=== PATIENT | male | born 1960 | race Caucasian/White ===

== ENCOUNTER 2018-02-15 05:33 | Emergency (ER) | payer OTHER, SELFPAY ==
[2018-02-15 05:35] VITALS: BP 143/92; PULSE 75; RESP 20; TEMP 36.6; O2SAT 100; BMI 31.7
--- NOTE | 2018-02-15 05:43 | ED.DCSUM_ITS ---
- ER Visit Summary Date of Service: 02/15/18 Chief Complaint: Abdominal pain, nausea History of Present Illness: The patient is a 58 M presents to the emergency department with 3 days of intermittent midepigastric abdominal pain and nausea. Patient states his symptoms started gradually. He describes a dull ache in his midepigastric area that radiates to his right upper quadrant. He states it is worse when he tries to eat. He has had some constipation. He denies any fevers or chills. He has had some dry heaves, but describes nonbloody, nonbilious vomiting. He has no history of Crohn's disease or ulcerative colitis. He denies any recent travel. He said no surgery on his abdomen in the past. He states his never really had symptoms like this before. He has had no chest pain or exertional dyspnea. He has no history of diabetes. Physical Examination: Vital signs reviewed General: Well-nourished, well-developed Head: Normocephalic, atraumatic Eyes: Pupils equal and reactive, extraocular muscles intact Neck, supple, no lymphadenopathy Heart: Regular rate and rhythm Respiratory: No distress, clear bilaterally Abdomen: Soft, tender in the right upper quadrant but no definitive Marlow sign , nondistended, no peritoneal signs Back: Nontender Extremities: Nontender, no edema, no cords Skin: Normal color no rash Neuro: Alert and oriented, no focal or lateralizing deficits Test Results: [] Emergency Department Course and Treatment: The patient presents with midepigastric pain and was right upper quadrant. He is also had nausea and the pain is worse when he eats. His symptoms are consistent with biliary colic versus gastritis versus ulcer. Patient was treated with IV analgesics and antiemetics with improvement of symptoms. His labs are unremarkable. There is no evidence of biliary obstruction on screening labs. With the patient's symptoms, he will undergo CT of the abdomen and pelvis with IV contrast. This will be followed up by oncoming physician. Obviously if there are any acute abnormalities, this will be dealt with. I do feel comfortable that if this shows no acute process, the patient can safely be discharged with antiemetics and it has spasmodic. Disposition is pending completion of evaluation. Treatment Plan: [] Disposition: Pending Impression: 1. Nausea 2. Midepigastric abdominal pain This note was generated with [employer] software. It may contain incorrect words, spelling, and punctuation that were not noted in review of the chart prior to signing ED Disposition - Plan for ED Patient: Chief Complaint: Nausea/Vomiting Instructions: ED Nausea Vomiting Prescriptions: Ondansetron [Zofran Odt] 4 mg PO Q8H PRN PRN #20 tab PRN Reason: Nausea Referrals: Derek Manning MD [Primary Care Provider] -
[2018-02-15] MEDS: Morphine 4 MG/ML Syringe IV (05:53)
[2018-02-15] MEDS: 0.9% Normal Saline 1,000 ML 1000 ML IV (05:53)
[2018-02-15] MEDS: Ondansetron 4 MG/2 ML Vial IV ×2 (05:56→08:34)
[2018-02-15 06:08] LABS: Absolute Lymphocyte Count 1.64 X10^3/ul (0.83-4.51); Absolute Neutrophil Count 6.8 X10^3/uL (2.0-7.7); Basophil# 0.02 X10^3/uL; Basophil% 0.2 % (0-1); Eosinophil# 0.14 X10^3/uL; Eosinophils% 1.5 % (0-5); Hematocrit 45.7 % (40-54); Hemoglobin 15.7 g/dl (13.0-16.5); Lymphocyte # 1.64 X10^3/ul (4.0); Lymphocyte % 17.9 % (19-41); Mean Corp Hgb Conc 34.4 g/gl (32-36); Mean Corpuscular Hgb 31.3 pg (27.0-32.0); Mean Corpuscular Volume 91.2 fL (80-94); Mean Platelet Vol. 10.3 fl (6.2-12.0); Monocyte# 0.53 X10^3/uL; Monocyte% 5.8 % (0-10); Neutrophil # 6.81 X10^3/uL (2.7-7.7); Neutrophil % 74.4 % (47-70); Platelet Count 280 K/mm3 (150-450); RBC Distribution Width CV 13.2 % (11.6-14.6); RBC Distribution Width SD 43.6 fl (35.1-43.9); Red Blood Count 5.01 M/mm3 (4.6-6.2); White Blood Count 9.2 K/mm3 (4.4-11.0)
[2018-02-15 06:10] LABS: AST(SGOT) 20 U/L (15-37); Alanine Aminotransfer ALT/SGPT 31 U/L (16-61); Albumin, Serum 3.9 g/dL (3.2-5.0); Alkaline Phosphatase 81 U/L (45-117); Anion Gap 7 (5-15); BUN 14 mg/dL (7-18); BUN/Creat Ratio 19.6 RATIO (10-20); Bilirubin, Direct 0.13 mg/dL (0.00-0.30); Calcium,Total 8.9 mg/dL (8.5-10.1); Chloride 104 mmol/L (98-107); Creatinine, Serum 0.71 mg/dL (0.70-1.30); EST Glomerular Filtration Rate 121 mL/min (>60); Est Glom Filt Rate - Afr Amer 146 mL/min (>60); Estimated Creatinine Clearance 118.53 ml/min; Globulin 3.8 g/dL (2.2-4.2); Glucose 104 mg/dL (74-106); Lipase 59 U/L (73-393); Potassium 3.6 mmol/L (3.5-5.1); Protein, Total 7.7 g/dL (6.4-8.2); Sodium Level 139 mmol/L (136-145)
--- NOTE | 2018-02-15 06:11 | CT_ITS ---
STUDY: CT ABDOMEN AND PELVIS WITH CONTRAST REASON FOR EXAM: Male, 58 years old. Nausea vomiting 3 days RADIATION DOSAGE (If Supplied By Facility): CTDIvol = ( 16.98 ) mGy, DLP = ( 1296.99 ) mGycm TECHNIQUE: Transaxial images were obtained from the dome of the diaphragm to the symphysis pubis without oral contrast. 100 ml of Isovue 300 contrast was administered. Sagittal and coronal images were reconstructed. Individualized dose optimization techniques were used for this CT. COMPARISON: July 08, 2015 CT scan abdomen and pelvis FINDINGS: The visualized lung bases are unremarkable. The visualized portions of the heart are within normal limits. There is decreased attenuation of the liver consistent with steatosis. Normal gallbladder and extrahepatic biliary system. Normal spleen. Normal pancreas. There is a well-circumscribed nodule in the left adrenal gland medial side measuring 1.1 cm stable in size when compared to prior study but enhancing. There is a 1.1 x 1.1 cm low-attenuation within the right kidney stable since prior study compatible with a simple cyst. Is focal cortical thinning in the lower pole of the left kidney and to some degree within the upper pole suggesting possible prior old infarct or injury. There is a small hiatal hernia. There is a mildly thick-walled appearance of the duodenum on image #56 coronal view. There is moderate stool in the colon from the cecum to the rectum. There are diverticula present without evidence of diverticulitis. The appendix is visualized and appears normal. Aorta is partially calcified. Normal inferior vena cava. Normal retroperitoneum. Normal urinary bladder. Normal visualized prostate gland. There is a small umbilical hernia containing fat. There is multilevel degenerative change. There is multilevel spondylosis. There is a 50% chronic loss of height at T9. There is, in space narrowing at T8-T9 and T9-T10. At the level of L3-L4 there is a broad disc bulge mild neural foraminal narrowing narrowing of the bony canal. At L4-L5 there is a central disc osteophyte. There is moderate neural foraminal narrowing and mild central stenosis. The level of L5-S1 there is a broad disc bulge facet arthropathy mild foraminal narrowing. There is degenerative change of the SI joints. There are phleboliths in the pelvis. CT/Abdomen/Pelvis W IV Cont ONLY IMPRESSION: Hiatal hernia decompressed stomach. Mild thick-walled appearance of the duodenum. Consider mild duodenitis, possible enteritis. No evidence of obstruction. No evidence of appendicitis. Stable, small size enhancing left adrenal mass measuring 1.1 x 1.1 cm also described on 2 noncontrast prior studies back to a report January 13, 2012. Enhancement of a adrenal adenoma is somewhat atypical however given the stability is thought to represent a benign mass. Moderate constipation diverticulosis no evidence of diverticulitis. Stable right renal cyst Stable cortical loss left kidney consider old infection or infarction. Degenerative change thoracolumbar spine. Electronically Signed: Nicole Monahan MD at 8:31 EDT Tel , Service support ,
[2018-02-15 06:28] LABS: POSITIVE COUNT NO; POSITIVE DIFFERENTIAL NO; POSITIVE MORPHOLOGY NO
[2018-02-15] MEDS: MethylPREDNISolone 125 MG/2 ML Vial IV (06:47)
[2018-02-15] MEDS: DiphenhydrAMINE 50 MG/ML Syringe IV (06:47)
[2018-02-15 08:19] VITALS: BP 127/85; PULSE 56; RESP 16; O2SAT 99
--- NOTE | 2018-02-15 08:19 | ED.RN ---
called pharmacy for gloria
[2018-02-15 09:00] VITALS: BP 141/93; PULSE 63; RESP 15; O2SAT 95
== END 2018-02-15 09:01 | disposition home or self-care (01) ==
LOC: ED 05:53
PROVIDERS: Emergency Provider Emergency Medicine; Family Provider Internal Medicine; PCP Internal Medicine
DX: R10.13 Epigastric pain (principal); I10 Essential (primary) hypertension; R11.2 Nausea with vomiting, unspecified
CPT/HCPCS: 74177; 80048; 80076; 83690; 85025; 96361; 96365; 96375; 96376; 99283; J7030; Q9967; A4216; J3490

== ENCOUNTER 2018-02-18 14:49 | Observation (INO) | payer OTHER, SELFPAY ==
[2018-02-18 14:52] VITALS: BP 120/86; PULSE 92; RESP 24; TEMP 36.8; O2SAT 100; BMI 33.8
--- NOTE | 2018-02-18 15:15 | CT_ITS ---
STUDY: CT ABDOMEN AND PELVIS WITH CONTRAST REASON FOR EXAM: Male, 58 years old. Nausea/vomiting/constipation. RADIATION DOSAGE (If Supplied By Facility): CTDIvol = ( 18.15 ) mGy, DLP = ( 1280.23 ) mGycm TECHNIQUE: Transaxial images were obtained from the dome of the diaphragm to the symphysis pubis without oral contrast. 100CC ml of Isovue 300 contrast was administered. Sagittal and coronal images were reconstructed. Individualized dose optimization techniques were used for this CT. COMPARISON: CT abdomen and pelvis February 15, 2018. FINDINGS: Minor subsegmental atelectasis again seen in the anteromedial right middle lobe. The visualized portions of the heart are within normal limits. Normal liver. The patent portal vein diameter is 15 mm. Normal gallbladder and extrahepatic biliary system. The common bile duct diameter is 5 mm. Normal spleen. Normal pancreas. There is a 1.8 x 1.4 x 1.65 cm circumscribed, smooth, left adrenal soft tissue mass, consistent with an adrenal adenoma. Normal right adrenal gland. Stable 1.4 cm rounded low-density consistent with a cortical cyst at the lateral midpole of the right kidney. On the left, there is rounded, smoothly defined 1.9 cm scalloped appearance of the posterior lower pole cortex that may be scarring secondary to old infarct or a fatty leg and cortical lesion, such as angiomyolipoma. Cortical scarring/thinning in the medial upper pole is unchanged. Vaguely defined 1.35 x 0.8 x 1.15 cm cortical low density in the medial lower pole of left kidney is difficult to characterize. No hydronephrosis. There is a borderline hiatal hernia. Normal small intestine. There are multiple sigmoid colonic diverticula consistent with diverticulosis. The appendix is visualized and appears normal. There is mild atherosclerotic calcification of the abdominal aorta and proximal iliac arteries, without a demonstrated aneurysm. Normal inferior vena cava. Normal retroperitoneum. Normal urinary bladder. The prostate gland is approximately 3.9 x 3.75 x 3.2 cm. There is a stable umbilical hernia containing fat. There are stable degenerative changes of the visualized spine, including prominent posterior midline inferior L4 endplate osteophyte. Stable compression fracture deformity of the T9 vertebra and exuberant bilateral T8-9 endplate osteophytes. There are early osteoarthritic degenerative changes of the left hip. CT/Abdomen/Pelvis WITH Contrast IMPRESSION: 1. Sigmoid diverticulosis without acute diverticulitis. Borderline hiatal hernia. No sign of bowel obstruction. The appendix is normal. 2. Stable cortical scarring/thinning in the upper and lower poles of the left kidney. A 1.35 cm cortical lesion in the medial lower pole left kidney is difficult to characterize. 1.4 cm mid pole right renal cortical cyst is unchanged. No hydronephrosis. 3. Stable 1.8 cm left adrenal mass consistent with adenoma. 4. Stable, fat-containing umbilical hernia. 5. Stable degenerative changes of the spine, as well as stable compression fracture deformity of T9. Electronically Signed: Danielito Rivera MD at 18:15 EDT , Service support ,
--- NOTE | 2018-02-18 15:21 | ED.DCSUM_ITS ---
- ER Visit Summary Date of Service: 02/18/18 Chief Complaint: Nausea, vomiting, constipation History of Present Illness: The patient is a 58 M who is had nausea and vomiting for the past 6 days. He is complaining of upper abdominal pain. He does report being constipated but did have a small bowel movement with an enema over the weekend. He is still passing gas. Patient was seen in the ER on the sixth had a CT with IV contrast that showed thick-walled duodenum without obstruction. Patient still has nausea with dry heaves in spite of Zofran. He was seen at his PCPs office yesterday given Carafate but is not able to keep it down. He has not had fever. He denies any prior abdominal surgeries. Physical Examination: Vital signs are unremarkable. Patient is lying in bed with dry heaves. Heart is regular rate and rhythm. Lung sounds are clear. Abdomen is soft with upper abdominal tenderness. There is no guarding or rebound. He has hypoactive but present bowel sounds throughout. Test Results: CBC was a white count 11.9 with 84% neutrophils. Hemoglobin is concentrated at 17.5. Chemistry studies are significant for BUN of 20. LFTs and lipase are normal. CT abdomen pelvis with p.o. and IV contrast is obtained. This reveals evidence of sigmoid diverticulosis. There is no bowel obstruction. The previous duodenal edema is not noted. Emergency Department Course and Treatment: Was given Phenergan, Bentyl, IV fluids, and a dose of fentanyl for vomiting and pain. He was premedicated for his CT with Pepcid, Solu-Medrol, and Benadryl. Patient has required an additional dose of Zofran. While he was able to keep some down p.o., he is not well-hydrated and he does not feel that he is going to be able tolerate p.o. well enough at home. He will be admitted overnight for observation and hydration. Treatment Plan: [] Disposition: Admit Impression: 1. Gastritis 2. Vomiting This note was generated with [employer] dictation software. It may contain incorrect words, spelling, and punctuation that were not noted in review of the chart prior to signing ED Disposition - Plan for ED Patient: Chief Complaint: Nausea/Vomiting Referrals: Derek Manning MD [Primary Care Provider] -
[2018-02-18 15:33] LABS: Absolute Lymphocyte Count 1.32 X10^3/ul (0.83-4.51); Basophil# 0.01 X10^3/uL; Basophil% 0.1 % (0-1); Eosinophil# 0.01 X10^3/uL; Eosinophils% 0.1 % (0-5); Hematocrit 49.7 % (40-54); Hemoglobin 17.5 g/dl (13.0-16.5); Lymphocyte # 1.32 X10^3/ul (4.0); Lymphocyte % 11.1 % (19-41); Mean Corp Hgb Conc 35.2 g/gl (32-36); Mean Corpuscular Hgb 31.8 pg (27.0-32.0); Mean Corpuscular Volume 90.4 fL (80-94); Mean Platelet Vol. 10.5 fl (6.2-12.0); Monocyte# 0.53 X10^3/uL; Monocyte% 4.5 % (0-10); Neutrophil # 9.96 X10^3/uL (2.7-7.7); Neutrophil % 83.9 % (47-70); Platelet Count 338 K/mm3 (150-450); RBC Distribution Width CV 12.9 % (11.6-14.6); RBC Distribution Width SD 42.4 fl (35.1-43.9); White Blood Count 11.9 K/mm3 (4.4-11.0)
[2018-02-18] MEDS: Dicyclomine 20 MG/2 ML Vial IM (15:34)
[2018-02-18] MEDS: MethylPREDNISolone 125 MG/2 ML Vial IV (15:34)
[2018-02-18] MEDS: proMETHazine 25 MG/ML Syringe 12.5 MG IV ×2 (15:34→22:04)
[2018-02-18] MEDS: DiphenhydrAMINE 50 MG/ML Syringe IV (15:34)
[2018-02-18] MEDS: 0.9% Normal Saline 1,000 ML 1000 ML IV (15:35)
[2018-02-18 15:37] LABS: POSITIVE COUNT NO; POSITIVE DIFFERENTIAL NO; POSITIVE MORPHOLOGY NO
[2018-02-18 15:39] LABS: AST(SGOT) 16 U/L (15-37); Alanine Aminotransfer ALT/SGPT 25 U/L (16-61); Alkaline Phosphatase 76 U/L (45-117); Anion Gap 8 (5-15); BUN 20 mg/dL (7-18); BUN/Creat Ratio 21.6 RATIO (10-20); Bilirubin, Direct 0.17 mg/dL (0.00-0.30); Calcium,Total 9.4 mg/dL (8.5-10.1); Chloride 101 mmol/L (98-107); Creatinine, Serum 0.92 mg/dL (0.70-1.30); EST Glomerular Filtration Rate 90 mL/min (>60); Est Glom Filt Rate - Afr Amer 108 mL/min (>60); Estimated Creatinine Clearance 91.47 ml/min; Globulin 3.9 g/dL (2.2-4.2); Glucose 99 mg/dL (74-106); Lipase 47 U/L (73-393); Potassium 3.9 mmol/L (3.5-5.1); Protein, Total 7.9 g/dL (6.4-8.2); Sodium Level 138 mmol/L (136-145)
[2018-02-18] MEDS: fentaNYL 100 MCG/2 ML Ampul 25 MCG IV (17:03)
[2018-02-18 17:05] VITALS: BP 139/70; PULSE 77; RESP 18; O2SAT 98
[2018-02-18] MEDS: 0.9% Normal Saline 1,000 ML 150 ML IV (17:07)
[2018-02-18] MEDS: Ondansetron 4 MG/2 ML Vial IV (18:53)
[2018-02-18 20:16] VITALS: BMI 33.9
--- NOTE | 2018-02-18 20:17 | PCM.HP.STD ---
Problem List (1) Anxiety and depression Status: Acute (2) HTN (hypertension) Status: Chronic (3) GERD (gastroesophageal reflux disease) Status: Acute (4) Obesity Status: Acute (5) Gastroenteritis Status: Acute History of Present Illness Date of Admission: 02/18/18 Chief Complaint: Abdominal pain, N/V The patient is a 58 y/o M w/ PMHx: HTN, Former Tobacco use, GERD, Anxiety and Depression, Obesity who was recently evaluated in the ED over the weekend with ongoing abdominal discomfort, dull ache noted 7-05/22 prior, now 11/22 in the ED following regimen, noted primarily upper BL quadrants with inability to eat, nausea with emesis w/ imaging at that time demonstrating duodenitis w/ discharge from ED w/ zofran who now re-presents to the [facility] ED on 02/18/18 with ongoing discomfort, nausea, emesis despite zofran and PCP added carafate without fever or chills. He notes history of diarrhea and abdominal discomfort ~ 2 weeks prior which lasted 48 hours and resolved and then prior to current onset of discomfort sensation of constipation w/ last BM the AM of ED presentation, normalizing but small. In the ED work-up included T 98.2, HR 92-->77, BP 120/86, RR 24-->18, 100% on RA, CBC w/ WBC 11.9, Hgb 17.5, Plts 338 with L shift, unremarkable CMP, CT A/P w/ sigmoid diverticulosis without acute diverticulitis, borderline hiatal hernia, no sign of bowel obstruction, normal appearing appendix, stable cortical scarring and thinning in the upper and lower poles of the left kidney, 1.3 cm cortical lesion in the medial lower pole left kidney, 1.4 similar mid pole right renal cortical cyst unchanged, no hydronephrosis, stable 1.8 similar left adrenal mass consistent with adenoma, stable fat-containing umbilical hernia, stable degenerative changes of the spine. In the ED patient administered NS, Phenergan, Zofran, Solu-Medrol, fentanyl, famotidine, Benadryl, Bentyl. Given ongoing discomfort and inability to appropriately keep hydrated patient admitted. Past Medical History Past Medical History (Chronic Problems): Chronic Problems HTN (hypertension) (Chronic) Allergies iodine Allergy (Verified 02/18/18 14:51) Hives Penicillins Allergy (Verified 02/18/18 20:16) Hives Home Medications: Ambulatory Orders Medication Instructions Recorded Lisinopril/Hydrochlorothiazide 1 tablet PO DAILY 02/15/18 [Zestoretic 10/12.5 Tablet] Ondansetron [Zofran Odt] 4 mg PO Q8H PRN PRN #20 tab 02/15/18 Oxycodone HCl/Acetaminophen 1 tablet PO DAILY PRN PRN 02/15/18 [Percocet 5/325] Amlodipine [Norvasc] 10 mg PO QHS 02/18/18 Aspirin [Aspirin EC] 325 mg PO DAILY 02/18/18 Duloxetine HCl 60 mg PO DAILY 02/18/18 Nabumetone [Relafen] 750 mg PO BID 02/18/18 Sucralfate [Carafate] 1 gm PO 4X/DAY 02/18/18 Surgical History: - - Patient with history of spinal trauma with several surgeries including significant hardware placement initially which became infected and required removal with eventual fusion, right rotator cuff repair, oral surgery. Psychiatric History: Anxiety, Depression Lives: Spouse/ Significant Other Smoking Status: Former smoker - Quit approximate 10 years prior, prior to this one pack per day tobacco usage. Tobacco Use: Non-smoker Alcohol: None Drugs: None Review of Systems Constitutional: Reports: Anorexia, Malaise, Weakness, Fatigue. Denies: Chills, Fever, Weight Change HEENT: Denies: Head Aches, Sinus Congestion, Sinus Drainage Cardiovascular: Denies: Chest Pain, Palpitations Respiratory: Denies: Cough, Shortness of breath at rest, Sputum production Gastrointestinal: Reports: Abdominal Pain, Constipation, Diarrhea, Nausea, Vomiting Genitourinary: Denies: Dysuria Musculoskeletal: Reports: Back Pain. Denies: Joint Pain, Joint Tenderness Skin: Denies: Rash, Wounds Neurological: Denies: Numbness, Tingling, Focal weakness Psychiatric: Reports: Anxiety, Depression. Denies: Homicidal Ideations, Suicidal Ideations Hematologic/ Lymphatic: Denies: Easy Bruising, Easy Bleeding VTE Information - Inpt Only VTE Present on Admission: No VTE Mechan Device Prophylaxis: SCD's VTE Pharm Prophylaxis ordered?: Yes Patient Problems: Active and Suspected Problems Anxiety and depression (Acute) GERD (gastroesophageal reflux disease) (Acute) Obesity (Acute) Gastroenteritis (Acute) Subjective: Seated upright in the ED bed, notes feeling improved since initial presentation, rating discomfort 2 out of 10 Objective: Physical Examination: General: awake, alert, oriented x 3 and cooperative, seated upright in the ED bed in no apparent distress, texting on his phone. Skin: normal color, turgor, no icterus, cyanosis, pitting regions s/p hardware removal to back. HEENT: AT/NC, EOMI, PERRLA, mildly dry MM, no carotid bruits or JVD noted. Lungs: CTA bilaterally, moderate effort, mild decrease BL bases, no rales, ronchi or wheezing. Heart: Regular rate and rhythm; no gallop, rub audible. Abdomen: soft, mild discomfort to palpation BL UQ, L sided more uncomfortable, notes prior distention, current ND, decreased BS, difficult to assess HSM given habitus and discomfort. Extremities: no cyanosis, clubbing, or edema. Neurological: patient awake, alert, oriented x 3; cognitive function intact; pupils equally reactive to light and accomodation; cranial nerves II-XII grossly normal, moving all 4 extremities, no focal deficits, strength moderately to severely decreased secondary to acute presentation. Psychiatric: affect appears mildly flat, no acute evidence of depressive or anxiety feelings. - Physical Exam Vital Signs Temp Pulse Resp BP Pulse Ox 98.2 F 77 18 139/70 H 98 02/18/18 14:52 02/18/18 17:05 02/18/18 17:05 02/18/18 17:05 02/18/18 17:05 Oxygen Delivery Method Room Air Weight: 236 lb 1.841 oz Body Mass Index (BMI) 33.8 Laboratory Tests Past 24 Hrs 02/18/18 02/18/18 15:09 15:09 WBC 11.9 H RBC 5.50 Hgb 17.5 H Hct 49.7 MCV 90.4 MCH 31.8 MCHC 35.2 RDW 12.9 RDW Differential 42.4 Plt Count 338 MPV 10.5 Immature Gran % (Auto) 0.300 Neut % (Auto) 83.9 H Lymph % (Auto) 11.1 L [place] % (Auto) 4.5 Eos % (Auto) 0.1 Baso % (Auto) 0.1 Absolute Neuts (auto) 10.0 H Absolute Lymphs (auto) 1.32 Total Counted Not Reportable Sodium 138 Potassium 3.9 Chloride 101 Carbon Dioxide 29.0 Anion Gap 8 BUN 20 H Creatinine 0.92 Estim Creat Clear Calc 91.47 Est GFR (MDRD) Af Amer 108 Est GFR (MDRD) Non-Af 90 BUN/Creatinine Ratio 21.6 H Glucose 99 Calcium 9.4 Total Bilirubin 0.80 Direct Bilirubin 0.17 AST 16 ALT 25 Alkaline Phosphatase 76 Total Protein 7.9 Albumin 4.0 Globulin 3.9 Lipase 47 L Assessment/Plan Active and Suspected Problems Anxiety and depression (Acute) GERD (gastroesophageal reflux disease) (Acute) Obesity (Acute) Gastroenteritis (Acute) The patient is a 58 y/o M w/ PMHx: HTN, Former Tobacco use, GERD, Anxiety and Depression, Obesity who was recently evaluated in the ED over the weekend with ongoing abdominal discomfort, dull ache noted 7-05/22 prior, now 11/22 in the ED following regimen, noted primarily upper BL quadrants with inability to eat, nausea with emesis w/ imaging at that time demonstrating duodenitis w/ discharge from ED w/ zofran who now re-presents to the [facility] ED on 02/18/18 with ongoing discomfort, nausea, emesis despite zofran and PCP added carafate without fever or chills. (1) N/V, Recent Duodenitis/Gastroenteritis, Suspected Viral: Will admit to [facility], continue aggressive hydration, if onset diarrhea will obtain c diff, stool cx with repeat AM CBC. Will not start antibiotics at this time given unclear source pending stool studies as may be viral. Anti-emetics, pain regimen PRN. Allow clears once nausea improves and ADAT. Bentyl scheduled. (2) Hypertension: Continue home regimen including norvasc, lisinopril, holding hydrochlorothiazide, PRN hydralazine. (3) Obesity: Weight loss and lifestyle changes encouraged. (4) Anxiety and Depression: Maintain on home cymbalta regimen. (5) GERD: Maintain on famotidine, carafate. (6) DVT Prophylaxis: SCDs, lovenox. Code Visit OBSV E&M: 97676 Initial observation care L3
[2018-02-18 20:50] VITALS: BP 129/69; PULSE 75; PULSE 77; RESP 18; O2SAT 98
[2018-02-18 21:03] VITALS: BMI 34.2; BMI 34.3
[2018-02-18] MEDS: 0.9% Normal Saline 1,000 ML 125 ML IV (21:23)
[2018-02-18 21:24] VITALS: BP 142/78; PULSE 69; RESP 20; TEMP 36.9; O2SAT 94
[2018-02-18 21:34] LABS: Magnesium 2.2 mg/dL (1.6-2.6)
[2018-02-18] MEDS: Dicyclomine 10 MG Capsule 20 MG PO (22:04)
[2018-02-18] MEDS: Temazepam 15 MG Capsule PO (22:04)
[2018-02-18] MEDS: Famotidine 20 MG Tablet PO (22:04)
[2018-02-18] MEDS: Sucralfate 1 GM Tablet PO (22:04)
[2018-02-19] VITALS (7 sets, daily range): BP systolic 118–129; BP diastolic 59–75; PULSE 59–78; RESP 16–18; TEMP 36.3–36.9; O2SAT 94–98
[2018-02-19] MEDS: 0.9% Normal Saline 1,000 ML 125 ML IV ×3 (05:35→21:35)
[2018-02-19] MEDS: Sucralfate 1 GM Tablet PO ×4 (06:20→22:00)
[2018-02-19] MEDS: Dicyclomine 10 MG Capsule 20 MG PO ×4 (06:20→22:00)
[2018-02-19 06:36] LABS: Absolute Lymphocyte Count 1.04 X10^3/ul (0.83-4.51); Absolute Neutrophil Count 9.2 X10^3/uL (2.0-7.7); Basophil# 0.01 X10^3/uL; Basophil% 0.1 % (0-1); Eosinophil# 0.01 X10^3/uL; Eosinophils% 0.1 % (0-5); Hematocrit 44.2 % (40-54); Hemoglobin 15.7 g/dl (13.0-16.5); Lymphocyte # 1.04 X10^3/ul (4.0); Lymphocyte % 9.7 % (19-41); Mean Corp Hgb Conc 35.5 g/gl (32-36); Mean Corpuscular Hgb 32.1 pg (27.0-32.0); Mean Corpuscular Volume 90.4 fL (80-94); Mean Platelet Vol. 10.2 fl (6.2-12.0); Monocyte# 0.47 X10^3/uL; Monocyte% 4.4 % (0-10); Neutrophil # 9.16 X10^3/uL (2.7-7.7); Neutrophil % 85.3 % (47-70); Platelet Count 325 K/mm3 (150-450); RBC Distribution Width CV 13.1 % (11.6-14.6); RBC Distribution Width SD 43.1 fl (35.1-43.9); Red Blood Count 4.89 M/mm3 (4.6-6.2); White Blood Count 10.7 K/mm3 (4.4-11.0)
[2018-02-19 06:37] LABS: POSITIVE COUNT NO; POSITIVE DIFFERENTIAL NO; POSITIVE MORPHOLOGY NO
[2018-02-19 07:03] LABS: Anion Gap 7 (5-15); BUN 13 mg/dL (7-18); BUN/Creat Ratio 17.2 RATIO (10-20); Calcium,Total 8.6 mg/dL (8.5-10.1); Chloride 106 mmol/L (98-107); Creatinine, Serum 0.76 mg/dL (0.70-1.30); EST Glomerular Filtration Rate 113 mL/min (>60); Est Glom Filt Rate - Afr Amer 137 mL/min (>60); Estimated Creatinine Clearance 110.73 ml/min; Glucose 100 mg/dL (74-106); Potassium 3.9 mmol/L (3.5-5.1); Sodium Level 140 mmol/L (136-145)
[2018-02-19] MEDS: Etodolac 300 MG Capsule PO (08:21)
[2018-02-19] MEDS: Famotidine 20 MG Tablet PO ×2 (08:21→22:00)
[2018-02-19] MEDS: Enoxaparin 40 MG/0.4 ML Syringe SC (08:22)
[2018-02-19] MEDS: Aspirin E.C. 81 MG Tablet PO (08:23)
[2018-02-19] MEDS: DULoxetine Hcl 60 MG Capsule PO (08:23)
--- NOTE | 2018-02-19 14:51 | PCM.PROGNOTE ---
Subjective: The patient is a 58-year-old male with a past medical history of hypertension, former tobacco use, GERD, anxiety/depression and obesity who presented to the emergency department at [facility] on 02/18/2018 complaining of abdominal pain, nausea and vomiting. He had recently been seen in the emergency room over the recent weekend and discharged with Zofran. He states the Zofran is not helping and he continues to have nausea and vomiting. His PCP had added Carafate with no improvement. I had fever or chills. Vital signs in the emergency room were temperature 98.2, heart rate 92, blood pressure 120/86, respiratory rate 24 and he was 100% saturated on room air. CBC showed a white blood cell count of 11.9 with 84% neutrophils. White blood cell count on 02/19/2018 is 10.7 with 85% neutrophils. Hemoglobin at admission was 17.5 and platelets were within normal limits. Electrolytes were within normal limits and the BUN was 20 with a creatinine of 0.92. Abdomen and pelvis CT in the emergency department showed sigmoid reticulosis without diverticulitis. There was a borderline hiatal hernia and no evidence of bowel obstruction. The appendix was normal. There is stable cortical scarring/thinning in the upper and lower poles of the left kidney. There was a 1.35 cm cortical lesion in the medial lower pole of the left kidney. There was a 1.5 cm midpole right renal cortical cyst which is unchanged. There is no hydronephrosis. There is a stable 1.8 cm left adrenal mass consistent with adenoma. There is a stable fat-containing umbilical hernia. There is a stable compression fracture deformity of T9. Afebrile with stable vital signs. Requesting an advance in his diet. Nausea today, no emesis. Reports that he had black tarry stool about a week ago and this resolved. Has been taking Relafen daily and also occasional Advil. Increased stress in life recently - Physical Exam General: Alert, Oriented x3, Cooperative HEENT: Atraumatic, PERRLA, EOMI Oral: Moist Mucosa Neck: Supple Lungs: Clear to auscultation Cardiovascular: Regular rate, Regular Rhythm, Normal S1, Normal S2, No Gallop Abdomen: Bowel Sounds Present, Soft, Non-Distended, Tender - In the mid epigastric and right upper quadrant area but no guarding with palpation and the pain is much better than it was. Extremities: No cyanosis, No edema Psych/Mental Status: Normal Affect, Appropriate Vital Signs Temp Pulse Resp BP Pulse Ox 98.4 F 78 18 129/75 H 97 02/19/18 13:30 02/19/18 13:30 02/19/18 13:30 02/19/18 13:30 02/19/18 13:30 Oxygen Delivery Method Room Air Weight: 239 lb 6.752 oz Body Mass Index (BMI) 34.2 Intake and Output for Last 24 Hours 02/17/18 02/18/18 02/19/18 23:59 23:59 23:59 Intake Total 2665 / 2665 Balance 2665 / 2665 Microbiology Past 72 Hours 02/19/18 10:45 Enteric Bacteriology - Final Stool 02/19/18 10:45 C. difficile DNA Amplification - Final Stool 02/19/18 10:45 Stool Lactoferrin - Final Stool Laboratory Tests Past 24 Hrs 02/19/18 02/19/18 06:15 06:15 WBC 10.7 RBC 4.89 Hgb 15.7 Hct 44.2 MCV 90.4 MCH 32.1 H MCHC 35.5 RDW 13.1 RDW Differential 43.1 Plt Count 325 MPV 10.2 Immature Gran % (Auto) 0.400 Neut % (Auto) 85.3 H Lymph % (Auto) 9.7 L [place] % (Auto) 4.4 Eos % (Auto) 0.1 Baso % (Auto) 0.1 Absolute Neuts (auto) 9.2 H Absolute Lymphs (auto) 1.04 Total Counted Not Reportable Sodium 140 Potassium 3.9 Chloride 106 Carbon Dioxide 27.0 Anion Gap 7 BUN 13 Creatinine 0.76 Estim Creat Clear Calc 110.73 Est GFR (MDRD) Af Amer 137 Est GFR (MDRD) Non-Af 113 BUN/Creatinine Ratio 17.2 Glucose 100 Calcium 8.6 Medical Necessity - Tobacco Use Smoking Status: Former smoker Tobacco Use: Non-smoker Assessment/Plan Impressions 1. N/V/Abdominal pain in a patient on daily NSAID's with abnormal CT of the abdomen with thickening in the wall of first part of the small intestine and black tarry stools 1 week ago - suspect NSAID induced PUD. Sx are improving with H2 Nino and no black tarry stools now. No need for REGD at this time. Advance diet and continue the H2 nino. If he tolerates the advance in the diet will likely DC in the AM Code Visit Inpatient E&M: 42920 Subs Hosp L2
[2018-02-19] MEDS: Lisinopril 10 MG Tablet PO (22:00)
[2018-02-19] MEDS: HYDROCHLOROTHIAZIDE 12.5 MG CAPSULE PO (22:01)
[2018-02-20 02:40] VITALS: BP 117/72; PULSE 64; RESP 16; TEMP 36.8; O2SAT 97
[2018-02-20 02:47] VITALS: PULSE 64
[2018-02-20] MEDS: 0.9% Normal Saline 1,000 ML 125 ML IV (05:33)
[2018-02-20] MEDS: Dicyclomine 10 MG Capsule 20 MG PO ×2 (06:56→11:07)
[2018-02-20] MEDS: Sucralfate 1 GM Tablet PO ×2 (06:56→11:07)
[2018-02-20 07:46] VITALS: O2SAT 97
[2018-02-20 09:39] VITALS: BP 116/67; PULSE 66; RESP 16; TEMP 36.3; O2SAT 99
[2018-02-20] MEDS: DULoxetine Hcl 60 MG Capsule PO (09:41)
[2018-02-20] MEDS: Famotidine 20 MG Tablet PO (09:41)
[2018-02-20] MEDS: Aspirin E.C. 81 MG Tablet PO (09:42)
[2018-02-20] MEDS: Enoxaparin 40 MG/0.4 ML Syringe SC (09:42)
--- NOTE | 2018-02-20 10:06 | PCM.DC ---
- Discharge Diagnoses Current Active Problems: Current Active and Chronic Problems Anxiety and depression (Acute) HTN (hypertension) (Chronic) GERD (gastroesophageal reflux disease) (Acute) Obesity (Acute) Gastroenteritis (Acute) You will use the following diet at home:: Other - bananas, rice, applesauce and toast, no caffeine....stick to a soft diet for the next 48 hours. Caffeine, peppermints, chocolate and calcium all stimulate acid production......would avoid thes products for the next 2 weeks. Your food should be the consistency of: Mechanical soft (ground) Your liquids should be the consistency of: Regular/Thin Discharge Activity: Return to Normal Activity Call your doctor if you observe: Fever of 101 or Higher, Shortness of breath, Dizziness, Fainting spells, Chest pain, - - black tarry stool, recurrent nausea and vomiting, vomiting blood or what looks like coffee grounds. Instructions: ED PUD Additional Instructions: No Motrin, Nuprin, Advil, alleve or any other non-steroidal anti-inflammatory drugs. There is thickening of the wall of the duodenum and I think you probably have a duodenal ulcer....due to the relafen(nambutone) and stress. It will heal in about 6 weeks. If the pain recurs or you have recurrent nausea, vomiting and diarrhea you will need to have an EGD to look into the stomach and the duodenum. It is OK to take imodium as needed for diarrhea....it is available over the counter at any drug store and also most supermarkets. Allergies/Adverse Reactions: Allergies iodine Allergy (Verified 02/18/18 14:51) Hives Penicillins Allergy (Verified 02/18/18 20:16) Hives Medications to take at Discharge Lisinopril/Hydrochlorothiazide [Zestoretic 10/12.5 Tablet] 1 tablet PO QHS 02/15/18 Ondansetron [Zofran Odt] 4 mg PO Q8H PRN PRN #20 tab 02/15/18 Oxycodone HCl/Acetaminophen [Percocet 5-325] 0.5 tablet PO DAILY PRN PRN 02/15/18 Duloxetine HCl 60 mg PO DAILY 02/18/18 Sucralfate [Carafate] 1 gm PO 4X/DAY 02/18/18 Aspirin E.C. [Ecotrin] 81 mg PO DAILY@0800 tablet 02/20/18 Famotidine [Pepcid] 20 mg PO BID #60 tab 02/20/18 The following prescriptions were given: Famotidine [Pepcid] 20 mg PO BID #60 tab Primary Care Physician: Derek Manning MD [Primary Care Provider] - Please follow up with your Primary Care Physician in: 7-10 days Proposed Discharge Date: 02/20/18
--- NOTE | 2018-02-20 10:19 | DCINST_ITS ---
- Discharge Diagnoses Current Active Problems: Current Active and Chronic Problems Anxiety and depression (Acute) HTN (hypertension) (Chronic) GERD (gastroesophageal reflux disease) (Acute) Obesity (Acute) Gastroenteritis (Acute) You will use the following diet at home:: Other - bananas, rice, applesauce and toast, no caffeine....stick to a soft diet for the next 48 hours. Caffeine, peppermints, chocolate and calcium all stimulate acid production......would avoid thes products for the next 2 weeks. Your food should be the consistency of: Mechanical soft (ground) Your liquids should be the consistency of: Regular/Thin Discharge Activity: Return to Normal Activity Call your doctor if you observe: Fever of 101 or Higher, Shortness of breath, Dizziness, Fainting spells, Chest pain, - - black tarry stool, recurrent nausea and vomiting, vomiting blood or what looks like coffee grounds. Instructions: ED PUD Additional Instructions: No Motrin, Nuprin, Advil, alleve or any other non- steroidal anti-inflammatory drugs. There is thickening of the wall of the duodenum and I think you probably have a duodenal ulcer....due to the relafen( nambutone) and stress. It will heal in about 6 weeks. If the pain recurs or you have recurrent nausea, vomiting and diarrhea you will need to have an EGD to look into the stomach and the duodenum. It is OK to take imodium as needed for diarrhea....it is available over the counter at any drug store and also most supermarkets. Allergies/Adverse Reactions: Allergies iodine Allergy (Verified 02/18/18 14:51) Hives Penicillins Allergy (Verified 02/18/18 20:16) Hives Medications to take at Discharge Lisinopril/Hydrochlorothiazide [Zestoretic 10/12.5 Tablet] 1 tablet PO QHS 02/15 Ondansetron [Zofran Odt] 4 mg PO Q8H PRN PRN #20 tab 02/15/18 Oxycodone HCl/Acetaminophen [Percocet 5-325] 0.5 tablet PO DAILY PRN PRN Duloxetine HCl 60 mg PO DAILY 02/18/18 Sucralfate [Carafate] 1 gm PO 4X/DAY 02/18/18 Aspirin E.C. [Ecotrin] 81 mg PO DAILY@0800 tablet 02/20/18 Famotidine [Pepcid] 20 mg PO BID #60 tab 02/20/18 The following prescriptions were given: Famotidine [Pepcid] 20 mg PO BID #60 tab Primary Care Physician: Derek Manning MD [Primary Care Provider] - Please follow up with your Primary Care Physician in: 7-10 days Proposed Discharge Date: 02/20/18
--- NOTE | 2018-02-20 10:21 | DS.PCM_ITS ---
Discharge Date and Diagnosis Date of Admission: 02/18/18 Date of Discharge: 02/20/18 - Primary Discharge Diagnosis Active and Suspected Problems Peptic ulcer disease (Suspected) GERD (gastroesophageal reflux disease) (Acute) - Secondary Discharge Diagnosis Chronic Problems Chronic back pain (Chronic) HTN (hypertension) (Chronic) Obesity (Chronic) Hospital Course and Treatment Imaging Results: Clinical Impression(s) from Imaging Studies Abdomen/Pelvis CT 02/18/18 15:15 IMPRESSION: 1. Sigmoid diverticulosis without acute diverticulitis. Borderline hiatal hernia. No sign of bowel obstruction. The appendix is normal. 2. Stable cortical scarring/thinning in the upper and lower poles of the left kidney. A 1.35 cm cortical lesion in the medial lower pole left kidney is difficult to characterize. 1.4 cm mid pole right renal cortical cyst is unchanged. No hydronephrosis. 3. Stable 1.8 cm left adrenal mass consistent with adenoma. 4. Stable, fat-containing umbilical hernia. 5. Stable degenerative changes of the spine, as well as stable compression fracture deformity of T9. Electronically Signed: Danielito Rivera MD at 18:15 EDT , Service support , Laboratory Tests 02/18/18 02/18/18 02/18/18 15:09 15:09 15:09 WBC 11.9 H RBC 5.50 Hgb 17.5 H Hct 49.7 MCV 90.4 MCH 31.8 MCHC 35.2 RDW 12.9 RDW Differential 42.4 Plt Count 338 MPV 10.5 Immature Gran % (Auto) 0.300 Neut % (Auto) 83.9 H Lymph % (Auto) 11.1 L Isabela % (Auto) 4.5 Eos % (Auto) 0.1 Baso % (Auto) 0.1 Absolute Neuts (auto) 10.0 H Absolute Lymphs (auto) 1.32 Total Counted Not Reportable Sodium 138 Potassium 3.9 Chloride 101 Carbon Dioxide 29.0 Anion Gap 8 BUN 20 H Creatinine 0.92 Estim Creat Clear Calc 91.47 Est GFR (MDRD) Af Amer 108 Est GFR (MDRD) Non-Af 90 BUN/Creatinine Ratio 21.6 H Glucose 99 Calcium 9.4 Magnesium 2.2 Total Bilirubin 0.80 Direct Bilirubin 0.17 AST 16 ALT 25 Alkaline Phosphatase 76 Total Protein 7.9 Albumin 4.0 Globulin 3.9 Lipase 47 L 02/19/18 02/19/18 06:15 06:15 WBC 10.7 RBC 4.89 Hgb 15.7 Hct 44.2 MCV 90.4 MCH 32.1 H MCHC 35.5 RDW 13.1 RDW Differential 43.1 Plt Count 325 MPV 10.2 Immature Gran % (Auto) 0.400 Neut % (Auto) 85.3 H Lymph % (Auto) 9.7 L Isabela % (Auto) 4.4 Eos % (Auto) 0.1 Baso % (Auto) 0.1 Absolute Neuts (auto) 9.2 H Absolute Lymphs (auto) 1.04 Total Counted Not Reportable Sodium 140 Potassium 3.9 Chloride 106 Carbon Dioxide 27.0 Anion Gap 7 BUN 13 Creatinine 0.76 Estim Creat Clear Calc 110.73 Est GFR (MDRD) Af Amer 137 Est GFR (MDRD) Non-Af 113 BUN/Creatinine Ratio 17.2 Glucose 100 Calcium 8.6 Magnesium Total Bilirubin Direct Bilirubin AST ALT Alkaline Phosphatase Total Protein Albumin Globulin Lipase none Operations: None Procedures: None Summary of Care Provided: The patient is a 58-year-old male with a past medical history of hypertension, former tobacco use, GERD, anxiety/depression and obesity who presented to the emergency department at [facility] on 02/18/2018 complaining of abdominal pain, nausea and vomiting. He had recently been seen in the emergency room over the recent weekend and discharged with Zofran. He stated the Zofran was not helping and he continued to have nausea and vomiting. He reported that 1 week [prior to admission he had black tarry stools that resolved in 1-2 days. He takes daily Relafen and also occasional Advil. He admitted to being under a lot of stress recently. His PCP had added Carafate with no improvement. He had no fever or chills. Vital signs in the emergency room were temperature 98.2, heart rate 92, blood pressure 120/86, respiratory rate 24 and he was 100% saturated on room air. CBC showed a white blood cell count of 11.9 with 84% neutrophils. White blood cell count on 02/19/2018 is 10.7 with 85% neutrophils. Hemoglobin at admission was 17.5 and platelets were within normal limits. Electrolytes were within normal limits and the BUN was 20 with a creatinine of 0.92. Abdomen and pelvis CT in the emergency department showed sigmoid diverticulosis without diverticulitis. There was a borderline hiatal hernia and no evidence of bowel obstruction. The appendix was normal. There was stable cortical scarring/thinning in the upper and lower poles of the left kidney. There was a 1.35 cm cortical lesion in the medial lower pole of the left kidney. There was a 1.5 cm midpole right renal cortical cyst which is unchanged. There is no hydronephrosis. There is a stable 1.8 cm left adrenal mass consistent with adenoma. There is a stable fat-containing umbilical hernia. There is a stable compression fracture deformity of T9. He was admitted to the hospital and kept on clear liquids. A H2 lolita was started. Enteric pathogen panel was negative. Fecal leukocytes were negative and the C. difficile was also negative. Diet was advanced as tolerated and on the day of DC he felt much better. He was discharged home with a prescription for Pepcid 20 mg p.o. twice daily and will continue Carafate. He was instructed not to take Relafen or any other NSAID's. He will follow up with Dr. Manning. He will avoid caffeine and other agents that increase gastric acid secretion. Discharge Activity: Return to Normal Activity Call your doctor if you observe: Fever of 101 or Higher, Shortness of breath, Dizziness, Fainting spells, Chest pain, - - black tarry stool, recurrent nausea and vomiting, vomiting blood or what looks like coffee grounds. Home Medications: Medications to take at Discharge Lisinopril/Hydrochlorothiazide [Zestoretic 07/24.5 Tablet] 1 tablet PO QHS 02/15 Ondansetron [Zofran Odt] 4 mg PO Q8H PRN PRN #20 tab 02/15/18 Oxycodone HCl/Acetaminophen [Percocet 5-325] 0.5 tablet PO DAILY PRN PRN Duloxetine HCl 60 mg PO DAILY 02/18/18 Sucralfate [Carafate] 1 gm PO 4X/DAY 02/18/18 Aspirin E.C. [Ecotrin] 81 mg PO DAILY@0800 tablet 02/20/18 Famotidine [Pepcid] 20 mg PO BID #60 tab 02/20/18 Following Prescrptions Were Given to Patient: Famotidine [Pepcid] 20 mg PO BID #60 tab Primary Care Physician: Derek Manning MD [Primary Care Provider] - Please follow up with your Primary Care Physician in: 7-10 days Patient Instructions: ED PUD Disposition: Home Minutes spent on discharge:: 30 Patient Condition:: Good Medical Necessity - Tobacco Use Smoking Status: Former smoker Tobacco Use: Non-smoker Meaningful Use Info Meaningful Use Diagnoses (Choose all that apply): None applicable Code Visit Inpatient E&M: 94863 Disch Hosp
== END 2018-02-20 11:10 | disposition home or self-care (01) ==
LOC: ED 16:07 → MS2 20:36
PROVIDERS: Admitting Provider Family Medicine; Emergency Provider Emergency Medicine; Family Provider Internal Medicine; PCP Internal Medicine; Visit Provider Internal Medicine
DX: K21.9 Gastro-esophageal reflux disease without esophagitis (principal); I10 Essential (primary) hypertension; E66.9 Obesity, unspecified; G89.29 Other chronic pain; M54.9 Dorsalgia, unspecified; F41.9 Anxiety disorder, unspecified; F32.9 Major depressive disorder, single episode, unspecified; K57.30 Diverticulosis of large intestine without perforation or abscess without bleeding; K42.9 Umbilical hernia without obstruction or gangrene; E27.9 Disorder of adrenal gland, unspecified; K59.00 Constipation, unspecified; K29.70 Gastritis, unspecified, without bleeding; Z79.899 Other long term (current) drug therapy; Z79.82 Long term (current) use of aspirin; Z68.34 Body mass index [BMI] 34.0-34.9, adult; Z71.3 Dietary counseling and surveillance; Z87.891 Personal history of nicotine dependence
CPT/HCPCS: 36415; 74177; 80048; 80076; 83630; 83690; 83735; 85025; 87493; 87506; 96361; 96365; 96366; 96372; 96375; 96376; 97802; 99218; 99282; J7030; Q9967; A4216; G0378; J3490

== ENCOUNTER → 2020-04-19 09:15 | Outpatient (CLI) | payer OTHER, SELFPAY ==
--- NOTE | 2020-04-19 09:34 | EKG12_ITS ---
Test Reason : PRE OP Blood Pressure : / mmHG Vent. Rate : 080 BPM Atrial Rate : 080 BPM P-R Int : 142 ms QRS Dur : 104 ms QT Int : 366 ms P-R-T Axes : 026 051 018 degrees QTc Int : 422 ms Normal sinus rhythm Normal ECG Confirmed by JOSHUA STEINER ([id number]), acquisition editor FARZANA ALFORD ([id number]) on 04/24/2020 8:31:22 AM Referred By: Carlton Ray Confirmed By:JOSHUA STEINER
[2020-04-19 10:56] LABS: Hematocrit 49.5 % (40-54); Hemoglobin 16.2 g/dL (13.0-16.5); Mean Corp Hgb Conc 32.7 g/dL (32-36); Mean Corpuscular Hgb 30.7 pg (27.0-32.0); Mean Corpuscular Volume 93.8 fL (80-94); Mean Platelet Vol. 10.5 fl (6.2-12.0); Platelet Count 329 K/mm3 (150-450); RBC Distribution Width CV 14.1 % (11.6-14.6); RBC Distribution Width SD 47.8 fl (35.1-43.9); Red Blood Count 5.28 M/mm3 (4.6-6.2); White Blood Count 9.5 K/mm3 (4.4-11.0)
[2020-04-19 11:21] LABS: Anion Gap 8 (5-15); BUN 22 mg/dL (7-18); BUN/Creat Ratio 21.2 RATIO (10-20); Calcium,Total 9.2 mg/dL (8.5-10.1); Chloride 103 mmol/L (98-107); Creatinine, Serum 1.04 mg/dL (0.70-1.30); EST Glomerular Filtration Rate 78 mL/min (>60); Est Glom Filt Rate - Afr Amer 94 mL/min (>60); Glucose 97 mg/dL (74-106); Potassium 3.5 mmol/L (3.5-5.1); Sodium Level 137 mmol/L (136-145)
== END ==
PROVIDERS: Physician Assistant; PCP Internal Medicine; Referring Provider Orthopaedic Surgery; Visit Provider Orthopaedic Surgery
DX: Z01.818 Encounter for other preprocedural examination (principal); Z01.810 Encounter for preprocedural cardiovascular examination; Z11.59 Encounter for screening for other viral diseases
CPT/HCPCS: 36415; 80048; 85027; 87635; 93005; G2023; U0003

== ENCOUNTER → 2020-04-26 15:54 | Outpatient (CLI) | payer OTHER, SELFPAY ==
[2018-02-18 21:03] VITALS: BMI 34.2
--- NOTE | 2020-04-26 07:50 | LIP_PTH ---
PATIENT: DAREK GARCIA LOC: [facility] U#:[id number] AGE/SX: 65/M ROOM: RE04/26/[address]: Dr. Carlton Ray MD : 1960 BED: DIS: SPEC #: [id number] RECD: 04/26/20 15:34 STATUS: KARLI REARDON #: [id number] FEROZ: 04/26/20 07:[address]: Carlton Ray DEPT: SURGICAL PATHOLOGY RECD BY: Andrea Mcgovern ENTERED: 04/27/20 07:40 SP TYPE: LIPOMA OTHR DR: Dr. Derek Manning MD [facility] Tissues: Soft tissues, NOS Procedures: Surgery Specimen Level III HEADER OPERATION: Excision lipoma left shoulder PRE-OP DIAGNOSIS: Left shoulder lipoma TISSUE SUBMITTED: Left shoulder mass, probable lipoma MICROSCOPIC DIAGNOSIS Left shoulder mass, excisional biopsy: Mature adipose tissue, consistent with lipoma with focal area of fat necrosis. SJ:rashmi 04/28/20 MICROSCOPIC DESCRIPTION Slides are reviewed. GROSS DESCRIPTION Received is one container labeled with the patient's name and not further designated. The specimen consists of a nodular piece of yellow adipose tissue measuring 11 x 10 x 6 cm. Sections reveal yellow adipose cut surfaces without area of hemorrhage, necrosis or cystic degeneration. The specimen is inked and serially sectioned. Ccnp sections are submitted in four cassettes. / ROYA:rashmi 04/27/20 TC:1 CPT: 44830
== END ==
PROVIDERS: PCP Internal Medicine; Referring Provider Orthopaedic Surgery; Visit Provider Orthopaedic Surgery
DX: D17.39 Benign lipomatous neoplasm of skin and subcutaneous tissue of other sites (principal); I96 Gangrene, not elsewhere classified
CPT/HCPCS: 88304

== ENCOUNTER → 2020-05-30 15:12 | Outpatient (CLI) | payer OTHER, SELFPAY ==
[2018-02-18 21:03] VITALS: BMI 34.2
[2020-05-30 17:20] LABS: PSA,Total- Diagnostic 1.84 ng/mL (0.0-4.0)
== END ==
PROVIDERS: PCP Internal Medicine; Referring Provider Urology; Visit Provider Urology
DX: R97.20 Elevated prostate specific antigen [PSA] (principal)
CPT/HCPCS: 36415; 84153

== ENCOUNTER → 2023-09-24 | Outpatient (CLI) | payer OTHER, SELFPAY ==
[2023-09-24 11:27] LABS: Absolute Lymphocyte Count 1.32 X10^3/uL (0.83-4.51); Absolute Neutrophil Count 4.6 X10^3/uL (2.0-7.7); Basophil# 0.06 X10^3/uL; Basophil% 0.9 % (0-1); Eosinophil# 0.24 X10^3/uL; Eosinophils% 3.4 % (0-5); Hemoglobin 15.4 g/dL (13.0-16.5); Lymphocyte # 1.32 X10^3/ul (0.83-4.51); Lymphocyte % 18.9 % (19-41); Mean Corp Hgb Conc 32.1 g/dL (32-36); Mean Corpuscular Hgb 30.2 pg (27.0-32.0); Mean Corpuscular Volume 94.1 fL (80-94); Mean Platelet Vol. 10.5 fl (6.2-12.0); Monocyte# 0.73 X10^3/uL; Monocyte% 10.5 % (0-10); NRBC Flagged by Analyzer 0 % (0-5); Neutrophil # 4.58 X10^3/uL (2.7-7.7); Neutrophil % 65.7 % (47-70); Platelet Count 290 K/mm3 (150-450); RBC Distribution Width CV 13.2 % (11.6-14.6); RBC Distribution Width SD 45.5 fl (35.1-43.9)
[2023-09-24 11:52] LABS: Albumin, Serum 3.5 g/dL (3.2-5.0); Anion Gap 3 (5-15); BUN 18 mg/dL (7-18); BUN/Creat Ratio 16.5 RATIO (10-20); Calcium,Total 9.2 mg/dL (8.5-10.1); Chloride 106 mmol/L (98-107); Creatinine, Serum 1.09 mg/dL (0.70-1.30); EST Glomerular Filtration Rate 73 mL/min (>60); Est Glom Filt Rate - Afr Amer 88 mL/min (>60); Glucose 92 mg/dL (74-106); Potassium 4.1 mmol/L (3.5-5.1); Sodium Level 139 mmol/L (136-145)
== END | disposition home or self-care (01) ==
PROVIDERS: PCP Internal Medicine; Referring Provider Specialist; Visit Provider Specialist
DX: Z01.810 Encounter for preprocedural cardiovascular examination (principal); M16.11 Unilateral primary osteoarthritis, right hip; I10 Essential (primary) hypertension; E78.00 Pure hypercholesterolemia, unspecified
CPT/HCPCS: 36415; 80048; 82040; 85025

== ENCOUNTER → 2024-02-16 | Outpatient (CLI) | payer MEDICARE, SELFPAY ==
--- NOTE | 2024-02-16 11:30 | LES_PTH ---
PATIENT: DAREK GARCIA [facility] U[facility][id number] AGE/SX: 64/M ROOM: RE02/16/[address]: Dr. Naman Siegel MD : 1960 BED: DIS: 02/16/2024 SPEC #: [id number] RECD: 02/16/24 15:14 STATUS: KARLI REARDON #: [id number] FEROZ: 02/16/24 11:[address]: Naman Siegel DEPT: SURGICAL PATHOLOGY RECD BY: Kaylin Jackson ENTERED: 02/17/24 10:10 SP TYPE: Lesion OTHR DR: Dr. Derek Manning MD Tissues: Skin of eyelid, NOS Procedures: Surgery Specimen Level IV HEADER OPERATION: Right upper eyelid lesion excision PRE-OP DIAGNOSIS: Possible nevus TISSUE SUBMITTED: Right upper eyelid lesion MICROSCOPIC DIAGNOSIS Right upper eyelid lesion, excision: A piece of the skin with vascular congestion and mild perivascular chronic inflammation. Negative for malignancy. SJ/mr 02/18/24 MICROSCOPIC DESCRIPTION Slides are reviewed. GROSS DESCRIPTION Received in fixative is one container labeled with the patient's name and designated Right upper eyelid. The specimen consists of a piece of silva-brown skin measuring 0.2 x 0.2 x 0.1cm. SJ/ 02/17/24 TC:5 CPT: 72642
== END | disposition home or self-care (01) ==
LOC: LABSPEC 16:30
PROVIDERS: PCP Internal Medicine; Referring Provider Ophthalmology; Visit Provider Ophthalmology
DX: H02.9 Unspecified disorder of eyelid (principal)
CPT/HCPCS: 88305